=== PATIENT | female | born 1960 | race African-American/Black ===

== ENCOUNTER 2017-07-05 17:50 | Inpatient (IN) | payer OTHER ==
[~2017-07-05] VITALS: Ht 152.4 cm; Wt 90.7 kg
--- NOTE | ~2017-07-05 | WRIGHTHP ---
[place], [place] PATIENT HISTORY AND PHYSICAL EXAM NAME: ROSALEE LITTLEJOHN UNIT #: [id number] ROOM: 312 DOCTOR: MARGARET STOREY MD BIRTHDATE: [birth year] DOS: 07/06/2017 CHIEF COMPLAINT: "I have just been with some bad people and I have just been having bad thoughts. HISTORY OF PRESENT ILLNESS: This is a 57-year-old black female who resides in [place]. The patient was sent here on an involuntary basis. Apparently, she had gone to the emergency room complaining of chest pain. She tested positive for cannabis and cocaine. She was to be discharged, but upon being discharged, she called 911 stating that she was hearing voices and the voices were telling her to jump in front of cars in traffic in order to get killed. The patient at first on admission to the unit here refused to talk to anybody, but engaged in significant scanning behavior. She was somewhat hesitant to speak to me, but did eventually open up stating that she has been having bad thoughts in her head. The thoughts are not always hers, but the thoughts are being inserted. She has not been sleeping or eating well and she feels on edge and at risk to hurt herself. She is admitted now to rule out organic factors and to stabilize on medication. MENTAL STATUS: The patient is alert and oriented to person, place and time. Mood does seem to be horribly depressed. Affect is flat, blunted, and constricted. She is very paranoid and scans the halls and looks over her shoulder frequently. DIAGNOSIS: Schizoaffective disorder. PLAN: I will discontinue her Celexa in lieu of Remeron 15 mg at bedtime and I will augment with Latuda 40 mg at bedtime, not only to try to improve the effectiveness of Remeron as an antidepressant, but to stabilize mood and decrease psychosis. For now, I will get rid of the p.r.n. Haldol and Benadryl, if needed I will use Ativan and/or Geodon, engage in individual and keenan milieu activity, returning to the least restrictive environment when psychiatrically stable. [place], [place] PATIENT HISTORY AND PHYSICAL EXAM NAME: ROSALEE LTITLEJOHN UNIT #: [id number] ROOM: [facility] DOCTOR: MARGARET STOREY MD BIRTHDATE: [birth year] MARGARET STOREY MD CM:HISPHYS:PATIENT HISTORY AND PHYSICAL EXAMINATION 9 MARGARET STOREY MD 07/06/17 0935 interface
--- NOTE | ~2017-07-05 | PR ---
[place], [place] PROGRESS NOTE NAME: ROSALEE LITTLEJOHN UNIT #: [id number] ROOM: 312 DOCTOR: MARGARET STOREY MD BIRTHDATE: [birth year] DOS: 07/07/2017 CHIEF COMPLAINT: "I am hearing voices telling me that I am bad and I should do things." HISTORY OF PRESENT ILLNESS: The patient was interviewed in the dining area where she had completed her breakfast. She engaged in conversation. She was extremely distraught and tearful and reports ongoing depression. She also admits to significant command auditory hallucinations. The voices not only comment on what she is doing, but tell her that she is bad and she needs to do bad things. She was able to contract with safety and states that she was able to reach out to the nurses should the voices become too intense. She also reported that she is tolerating the current medication regimen well and notes no side effects. PLAN: At the present time is to maintain her current psychotropic regimen. I did discuss the case with [employer] regarding social interventions that can be done regarding an improved support network and possible alternative placement. We will continue her current psychotropic regimen, support, monitor and maintain. MARGARET STOREY MD CM:PNTRANS [id number] MARGARET STOREY MD 07/07/17 1314 interface
[2017-07-05] MEDS ORDERED: NITROSTAT0.4 MG SL (21:49)
[2017-07-05] MEDS ORDERED: LOPRESSOR50 M1 PO (21:50)
[2017-07-05] MEDS ORDERED: CELEXA40 MG PO (21:51)
[2017-07-05] MEDS ORDERED: CYMBALTA30 MG PO (21:52)
[2017-07-05] MEDS ORDERED: LIPITOR10 MG PO (21:53)
[2017-07-05] MEDS ORDERED: VISTARIL25 MG PO (21:54)
[2017-07-05] MEDS ORDERED: ZYPREXA10 M1 PO (21:55)
[2017-07-05] MEDS ORDERED: TOLTERODINE PO (21:56)
[2017-07-05] MEDS ORDERED: PALIPERIDONE ER6 MG PO (21:58)
[2017-07-05] MEDS ORDERED: REQUIP1 M1 PO (22:00)
[2017-07-05] MEDS ORDERED: VITAMIN D5000 UNI1 PO (22:00)
[2017-07-05] MEDS ORDERED: TAPAZOLE10 MG PO (22:02)
[2017-07-05] MEDS ORDERED: HYDROXYZINE HCL50 MG PO (22:05)
[2017-07-05] MEDS ORDERED: METFORMIN500 MG PO (22:06)
[2017-07-05] MEDS ORDERED: CLARITIN10 MG PO (22:06)
[2017-07-05] MEDS ORDERED: LISINOPRIL2.5 MG PO (22:07)
[2017-07-05] MEDS ORDERED: OMEPRAZOLE20 M2 PO (22:09)
[2017-07-05 22:37] VITALS: BP 129/89
[2017-07-05 23:59] VITALS: BP 129/89
[2017-07-06 06:56] LABS: BILIRUBIN 1+ (NEGATIVE); BLOOD NEGATIVE (NEGATIVE); CLARITY SL CLOUDY (CLEAR); COLOR YELLOW (YELLOW); GLUCOSE NEGATIVE (NEGATIVE); KETONE TRACE (NEGATIVE); LEUKO ESTERASE NEGATIVE (NEGATIVE); NITRITE NEGATIVE (NEGATIVE); PH 5.5 (5.0-9.0); SPECIFIC GRAVITY >= 1.030 (1.005-1.030); UROBILINOGEN 0.2 E.U./dl (0.2-1.0)
[2017-07-06 07:13] LABS: BASO % 0.4 % (0.0-1.0); EOS # 0.1 10*3/uL (0.0-0.4); EOS % 1.8 % (1.0-4.0); HEMATOCRIT 40.8 % (37.0-47.0); HEMOGLOBIN 13.4 g/dl (12.0-16.0); LYMPH # 1.8 10*3/uL (1.3-4.4); LYMPH % 39.4 % (27.0-41.0); MEAN CORPUSCULAR HGB 30.9 pg (27.0-31.0); MEAN CORPUSCULAR HGB CONC 32.8 g/dl (33.0-37.0); MEAN PLATELET VOLUME 9.8 fl (9.6-12.3); MONO # 0.5 10*3/uL (0.1-1.0); MONO % 10.5 % (3.0-9.0); NEUT # 2.1 10*3/uL (2.3-7.9); NEUT % 47.5 % (47.0-73.0); PLATELET COUNT AUTOMATED 305 10*3/uL (130-400); RED BLOOD COUNT 4.34 10*6/uL (4.10-5.10); RED CELL DISTRI WIDTH 15.9 % (0-14.5); WHITE BLOOD COUNT 4.5 10*3/uL (4.8-10.8)
[2017-07-06 07:23] LABS: EPITHELIAL CELLS 15-20; MUCOUS TRACE
[2017-07-06 07:26] LABS: POTASSIUM 4.1 mmol/L (3.5-5.1)
[2017-07-06 07:41] LABS: VITAMIN D, 25-HYDROXY 33.9 ng/mL (30-100)
[2017-07-06 07:50] LABS: ALBUMIN 3.7 gm/dl (3.1-4.5); CREATININE 1.32 mg/dL (0.55-1.02); THYROID STIM HORMONE (HS) 0.437 uIU/ml (0.358-4.75); TOTAL PROTEIN 7.9 gm/dL (6.4-8.2)
[2017-07-06 08:45] VITALS: BP 134/87
[2017-07-06 20:12] VITALS: BP 121/66
[2017-07-07 08:10] VITALS: BP 111/59
[2017-07-07 08:50] LABS: BASO % 0.4 % (0.0-1.0); EOS # 0.1 10*3/uL (0.0-0.4); EOS % 1.7 % (1.0-4.0); HEMATOCRIT 42.2 % (37.0-47.0); HEMOGLOBIN 13.9 g/dl (12.0-16.0); LYMPH # 2.2 10*3/uL (1.3-4.4); LYMPH % 42.3 % (27.0-41.0); MEAN CELL VOLUME 93.2 fl (81.0-99.0); MEAN CORPUSCULAR HGB 30.7 pg (27.0-31.0); MEAN CORPUSCULAR HGB CONC 32.9 g/dl (33.0-37.0); MEAN PLATELET VOLUME 9.6 fl (9.6-12.3); MONO # 0.4 10*3/uL (0.1-1.0); MONO % 8.3 % (3.0-9.0); NEUT # 2.4 10*3/uL (2.3-7.9); NEUT % 46.9 % (47.0-73.0); PLATELET COUNT AUTOMATED 311 10*3/uL (130-400); RED BLOOD COUNT 4.53 10*6/uL (4.10-5.10); RED CELL DISTRI WIDTH 15.7 % (0-14.5); WHITE BLOOD COUNT 5.2 10*3/uL (4.8-10.8)
[2017-07-07] MEDS ORDERED: LATU40TA PO (08:54)
[2017-07-07] MEDS ORDERED: ATIVAN1 MG PO (08:55)
[2017-07-07] MEDS ORDERED: REMERON15 M2 PO (08:55)
[2017-07-07] MEDS ORDERED: GEODON20 M1 IM (08:56)
[2017-07-07] MEDS ORDERED: ATIVAN2 MG/1 ML IM (08:56)
[2017-07-07 09:07] LABS: ALBUMIN 3.8 gm/dl (3.1-4.5); CREATININE 1.48 mg/dL (0.55-1.02); PHOSPHOROUS 3.3 mg/dL (2.5-4.9); POTASSIUM 4.3 mmol/L (3.5-5.1); TOTAL PROTEIN 8.1 gm/dL (6.4-8.2)
[2017-07-07] MEDS ORDERED: INVEGA6 MG PO (11:15)
[2017-07-07] MEDS ORDERED: ALLERGY10 M1 PO (11:16)
[2017-07-07] MEDS ORDERED: REQUIP0.5 MG PO (11:19)
[2017-07-07] MEDS ORDERED: ALDACTONE25 MG PO (11:21)
[2017-07-07] MEDS ORDERED: GABAPENTIN800 MG PO (11:26)
== END 2017-07-07 08:40 | disposition short-term general hospital (02) | DRG 885 ==
LOC: 3N 17:50
PROVIDERS: Psychiatry & Neurology Psychiatry; Registered Nurse
DX: F25.9 Schizoaffective disorder, unspecified (principal); N17.1 Acute kidney failure with acute cortical necrosis; E11.9 Type 2 diabetes mellitus without complications; R45.851 Suicidal ideations; E05.90 Thyrotoxicosis, unspecified without thyrotoxic crisis or storm; A59.9 Trichomoniasis, unspecified; E55.9 Vitamin D deficiency, unspecified; F19.10 Other psychoactive substance abuse, uncomplicated; F31.9 Bipolar disorder, unspecified; M19.90 Unspecified osteoarthritis, unspecified site; J44.9 Chronic obstructive pulmonary disease, unspecified; I10 Essential (primary) hypertension; G43.909 Migraine, unspecified, not intractable, without status migrainosus; Z87.01 Personal history of pneumonia (recurrent); Z84.89 Family history of other specified conditions; Z88.0 Allergy status to penicillin; Z91.013 Allergy to seafood; Z79.84 Long term (current) use of oral hypoglycemic drugs; Z79.899 Other long term (current) drug therapy; Z72.0 Tobacco use

== ENCOUNTER 2017-07-07 08:45 | Inpatient (IN) | payer OTHER ==
[~2017-07-07] VITALS: Ht 167.6 cm; Wt 86.2 kg
[~2017-07-07 08:45] MED LIST: CELEXA40 MG PO; CLARITIN10 MG PO; CYMBALTA30 MG PO; HYDROXYZINE HCL50 MG PO; LIPITOR10 MG PO; LISINOPRIL2.5 MG PO; LOPRESSOR50 M1 PO; METFORMIN500 MG PO; NITROSTAT0.4 MG SL; OMEPRAZOLE20 M2 PO; PALIPERIDONE ER6 MG PO; REQUIP1 M1 PO; TAPAZOLE10 MG PO; TOLTERODINE PO; VISTARIL25 MG PO; VITAMIN D5000 UNI1 PO; ZYPREXA10 M1 PO
[2017-07-07] MEDS ORDERED: LATU40TA PO (08:54)
[2017-07-07] MEDS ORDERED: ATIVAN1 MG PO (08:55)
[2017-07-07] MEDS ORDERED: REMERON15 M2 PO (08:55)
[2017-07-07] MEDS ORDERED: ATIVAN2 MG/1 ML IM (08:56)
[2017-07-07] MEDS ORDERED: GEODON20 M1 IM (08:56)
[2017-07-07 09:00] VITALS: BP 100/60
[2017-07-07] MEDS ORDERED: INVEGA6 MG PO (11:15)
[2017-07-07] MEDS ORDERED: ALLERGY10 M1 PO (11:16)
[2017-07-07] MEDS ORDERED: REQUIP0.5 MG PO (11:19)
[2017-07-07] MEDS ORDERED: ALDACTONE25 MG PO (11:21)
[2017-07-07] MEDS ORDERED: GABAPENTIN800 MG PO (11:26)
[2017-07-07 11:56] VITALS: BP 113/66
[2017-07-07 16:00] VITALS: BP 112/48
[2017-07-07 20:00] VITALS: BP 112/64
[2017-07-08 00:02] VITALS: BP 103/70
[2017-07-08 04:00] VITALS: BP 118/57
[2017-07-08 05:56] LABS: BASO % 0.4 % (0.0-1.0); EOS # 0.1 10*3/uL (0.0-0.4); EOS % 1.9 % (1.0-4.0); HEMOGLOBIN 12.6 g/dl (12.0-16.0); LYMPH % 42.1 % (27.0-41.0); MEAN CELL VOLUME 93.8 fl (81.0-99.0); MEAN CORPUSCULAR HGB 30.3 pg (27.0-31.0); MEAN CORPUSCULAR HGB CONC 32.3 g/dl (33.0-37.0); MEAN PLATELET VOLUME 9.7 fl (9.6-12.3); MONO # 0.4 10*3/uL (0.1-1.0); MONO % 9.3 % (3.0-9.0); NEUT # 2.2 10*3/uL (2.3-7.9); NEUT % 45.9 % (47.0-73.0); PLATELET COUNT AUTOMATED 287 10*3/uL (130-400); RED BLOOD COUNT 4.16 10*6/uL (4.10-5.10); RED CELL DISTRI WIDTH 15.5 % (0-14.5); WHITE BLOOD COUNT 4.7 10*3/uL (4.8-10.8)
[2017-07-08 05:59] LABS: ALBUMIN 3.4 gm/dl (3.1-4.5); CREATININE 1.3 mg/dL (0.55-1.02); PHOSPHOROUS 3.8 mg/dL (2.5-4.9); POTASSIUM 4.2 mmol/L (3.5-5.1); TOTAL PROTEIN 7.4 gm/dL (6.4-8.2)
[2017-07-08 08:00] VITALS: BP 112/71
== END 2017-07-08 12:20 | disposition home health service (06) | DRG 312 ==
LOC: ICCU 08:45
PROVIDERS: Registered Nurse
DX: R55 Syncope and collapse (principal); N17.0 Acute kidney failure with tubular necrosis; I50.32 Chronic diastolic (congestive) heart failure; R45.851 Suicidal ideations; E11.65 Type 2 diabetes mellitus with hyperglycemia; I11.0 Hypertensive heart disease with heart failure; F25.9 Schizoaffective disorder, unspecified; F17.200 Nicotine dependence, unspecified, uncomplicated; M48.061 Spinal stenosis, lumbar region without neurogenic claudication; E55.9 Vitamin D deficiency, unspecified; J44.9 Chronic obstructive pulmonary disease, unspecified; E05.90 Thyrotoxicosis, unspecified without thyrotoxic crisis or storm; M19.90 Unspecified osteoarthritis, unspecified site; F31.9 Bipolar disorder, unspecified; I25.10 Atherosclerotic heart disease of native coronary artery without angina pectoris; E03.9 Hypothyroidism, unspecified; G43.909 Migraine, unspecified, not intractable, without status migrainosus; Z95.5 Presence of coronary angioplasty implant and graft; Z88.0 Allergy status to penicillin; Z91.013 Allergy to seafood; Z79.899 Other long term (current) drug therapy

== ENCOUNTER 2017-07-08 11:06 | Inpatient (IN) | payer OTHER ==
[~2017-07-08] VITALS: Ht 167.6 cm; Wt 95.3 kg
--- NOTE | ~2017-07-08 | WRIGHTHP ---
[place], [place] PATIENT HISTORY AND PHYSICAL EXAM NAME: ROSALEE LITTLEJOHN UNIT #: [id number] ROOM: 310 DOCTOR: MARGARET STOREY MD BIRTHDATE: [birth year] DOS: 07/09/2017 CHIEF COMPLAINT: "I want to go home. I am still hearing voices." HISTORY OF PRESENT ILLNESS: This is a 57-year-old black female who was initially admitted to the [facility] due to worsening psychosis; however, the patient did have a syncopal episode in which she fell to the ground hitting her head, necessitating a brief stay on ICU as she was worked up medically and ultimately cleared. The patient continued to experience significant mood lability and psychosis necessitating a continued psychiatric stay. Upon readmission to the unit, the patient stated that she was afraid that visitors here were carrying guns and we are going to shoot her. She also stated that her son was going to come with his guns and shoot the place up. She was so agitated and aggressive at the time of readmission here, she required an intermuscular Geodon to calm and help her redirect. She did get good benefit from the Geodon. The patient continues to experience significant auditory hallucinations, poor sleep and appetite, poor ADLs and does require constant supervision because she remains acutely suicidal with a plan. She is readmitted now to rule out any further organic factors to attempt to engage in individual and keenan milieu activity and to stabilize on medication. PAST MEDICAL HISTORY: Remarkable for osteoarthritis, coronary artery disease, COPD, congestive heart failure, hypertension, hypothyroidism, migraine headaches, obesity, polysubstance abuse and a history of bipolar disorder. MENTAL STATUS: The patient is alert and oriented to person, place, and time. Mood is overwhelmingly depressed. Affect is flat, blunted, and constricted. She is very preoccupied and on the verge of tears. She does endorse positive auditory hallucinations and also endorses positive suicidal thoughts with a plan. Memory for the most part seems intact. DIAGNOSIS: Bipolar type 1, depressed with psychotic features. PLAN: Given the fact that she has tolerated the Invega well, I will go ahead and load her with Invega Sustenna 234 mg in an effort to try to improve compliance as well as break psychosis. I will maintain her on the Remeron 15 mg at bedtime as an antidepressant. Continue to engage in individual and keenan milieu activity with the plan to return home or the least restrictive environment when psychiatrically stable. [place], [place] PATIENT HISTORY AND PHYSICAL EXAM NAME: RSOALEE LITTLEJOHN UNIT #: [id number] ROOM: 310 DOCTOR: MARGARET STOREY MD BIRTHDATE: [birth year] MARGARET STOREY MD CM:HISPHYS:PATIENT HISTORY AND PHYSICAL EXAMINATION [id number] MARGARET STOREY MD 07/09/17 0908 interface
[~2017-07-08 11:06] MED LIST changes: +ALDACTONE25 MG PO; +ALLERGY10 M1 PO; +ATIVAN1 MG PO; +ATIVAN2 MG/1 ML IM; +GABAPENTIN800 MG PO; +GEODON20 M1 IM; +INVEGA6 MG PO; +LATU40TA PO; +REMERON15 M2 PO; +REQUIP0.5 MG PO
[2017-07-08 12:35] VITALS: BP 122/72
[2017-07-08 13:07] VITALS: BP 122/72
[2017-07-08 20:00] VITALS: BP 108/68
[2017-07-09 07:47] VITALS: BP 110/74
[2017-07-09 17:11] LABS: BASO % 0.4 % (0.0-1.0); EOS # 0.1 10*3/uL (0.0-0.4); EOS % 1.7 % (1.0-4.0); HEMATOCRIT 42.1 % (37.0-47.0); HEMOGLOBIN 13.9 g/dl (12.0-16.0); LYMPH # 2.4 10*3/uL (1.3-4.4); LYMPH % 44.4 % (27.0-41.0); MEAN CELL VOLUME 92.5 fl (81.0-99.0); MEAN CORPUSCULAR HGB 30.5 pg (27.0-31.0); MEAN PLATELET VOLUME 9.7 fl (9.6-12.3); MONO # 0.5 10*3/uL (0.1-1.0); MONO % 8.3 % (3.0-9.0); NEUT # 2.4 10*3/uL (2.3-7.9); NEUT % 44.8 % (47.0-73.0); PLATELET COUNT AUTOMATED 294 10*3/uL (130-400); RED BLOOD COUNT 4.55 10*6/uL (4.10-5.10); RED CELL DISTRI WIDTH 15.2 % (0-14.5); WHITE BLOOD COUNT 5.4 10*3/uL (4.8-10.8)
[2017-07-09 17:27] LABS: ALBUMIN 3.8 gm/dl (3.1-4.5); ALKALINE PHOSPHATASE 113 U/L (45-117); BUN 20 mg/dl (7-24); CHLORIDE 106 mmol/L (98-107); CREATININE 1.14 mg/dL (0.55-1.02); POTASSIUM 4.1 mmol/L (3.5-5.1); SGOT/AST 17 IU/L (3-35); SGPT/ALT 23 U/L (12-78); SODIUM 140 mmol/L (136-145); TOTAL PROTEIN 7.9 gm/dL (6.4-8.2)
[2017-07-09 17:29] LABS: TROPONIN I < 0.015 ng/ml (<0.045)
== END 2017-07-09 17:14 | disposition other institution (70) | DRG 885 ==
LOC: 3N 11:06
PROVIDERS: Hospitalist
DX: F31.5 Bipolar disorder, current episode depressed, severe, with psychotic features (principal); N17.0 Acute kidney failure with tubular necrosis; I50.32 Chronic diastolic (congestive) heart failure; R45.851 Suicidal ideations; G45.9 Transient cerebral ischemic attack, unspecified; I11.0 Hypertensive heart disease with heart failure; I25.10 Atherosclerotic heart disease of native coronary artery without angina pectoris; M19.90 Unspecified osteoarthritis, unspecified site; J44.9 Chronic obstructive pulmonary disease, unspecified; E03.9 Hypothyroidism, unspecified; F14.10 Cocaine abuse, uncomplicated; E05.90 Thyrotoxicosis, unspecified without thyrotoxic crisis or storm; E55.9 Vitamin D deficiency, unspecified; M48.061 Spinal stenosis, lumbar region without neurogenic claudication; F17.200 Nicotine dependence, unspecified, uncomplicated; D72.820 Lymphocytosis (symptomatic); G43.909 Migraine, unspecified, not intractable, without status migrainosus; E66.9 Obesity, unspecified; Z68.33 Body mass index [BMI] 33.0-33.9, adult; Z79.899 Other long term (current) drug therapy; Z86.59 Personal history of other mental and behavioral disorders; Z95.5 Presence of coronary angioplasty implant and graft; Z88.0 Allergy status to penicillin; Z91.013 Allergy to seafood

== ENCOUNTER 2017-07-09 16:53 | Emergency (ER) | payer OTHER ==
[~2017-07-09] VITALS: Ht 167.6 cm; Wt 99.8 kg
== END 2017-07-09 19:40 | disposition short-term general hospital (02) ==
LOC: ED 16:53
DX: I63.9 Cerebral infarction, unspecified (principal); I25.10 Atherosclerotic heart disease of native coronary artery without angina pectoris; G43.909 Migraine, unspecified, not intractable, without status migrainosus; I11.0 Hypertensive heart disease with heart failure; I50.30 Unspecified diastolic (congestive) heart failure; J44.9 Chronic obstructive pulmonary disease, unspecified; M19.90 Unspecified osteoarthritis, unspecified site; Z88.0 Allergy status to penicillin; Z91.013 Allergy to seafood; Z79.899 Other long term (current) drug therapy